=== PATIENT | female | born 2005 | race Caucasian/White ===

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

== ENCOUNTER → 2023-06-22 | Outpatient (CLI) | payer MEDICAID | LOC: RAD 14:57 | DX: R59.0 Localized enlarged lymph nodes (principal) | CPT/HCPCS: Q9967 ==

== ENCOUNTER 2023-07-17 01:35 | Emergency (ER) | payer MEDICAID ==
[~2023-07-17] VITALS: Ht 162.6 cm; Wt 102.3 kg
[2023-07-17 01:34] LABS: URINE WBC 0 /hpf (0-3)
[2023-07-17 01:40] LABS: BASO # 0.01 K/mm3 (0.02-0.10); EOS # 0.16 K/mm3 (0.04-0.40); EOS % 3.1 % (0.1-4.0); HEMATOCRIT 44.4 % (35.0-45.0); HEMOGLOBIN 14.8 g/dL (12.0-15.0); LYMPH# 2.36 K/mm3 (1.20-3.40); MEAN CELL VOLUME 85 fl (78-95); MEAN CORPUSCULAR HEMOGLOBIN 29 pg (26-32); MEAN CORPUSCULAR HGB CONC 33 g/dL (33-37); MEAN PLATELET VOLUME 10.2 fl (7.4-10.4); MONO # 0.63 K/mm3 (0.10-0.60); NEU # 2.02 K/mm3 (1.40-6.50); PLATELET COUNT 241 K/mm3 (130-400); RED CELL DISTRIBUTION WIDTH 12.6 % (11.5-14.5); WHITE BLOOD COUNT 5.2 K/mm3 (4.8-10.8)
[2023-07-17 01:44] LABS: ALBUMIN 4.2 g/dL (3.5-5.0)
[2023-07-17 01:46] LABS: CALCIUM 9.3 mg/dL (8.3-10.5)
[2023-07-17 01:47] LABS: URINE APPEARANCE CLEAR; URINE BILIRUBIN NEGATIVE (NEGATIVE); URINE BLOOD NEGATIVE (NEGATIVE); URINE COLOR YELLOW; URINE GLUCOSE NEGATIVE (NEGATIVE); URINE KETONE NEGATIVE (NEGATIVE); URINE LEUKOCYTE ESTERASE NEGATIVE (NEGATIVE); URINE MUCUS PRESENT (NOT PRESENT); URINE NITRATE NEGATIVE (NEGATIVE); URINE PROTEIN(semi-quant) NEGATIVE (NEGATIVE); URINE UROBILINOGEN NORMAL (NORMAL)
[2023-07-17 01:47] LABS: TOTAL PROTEIN 7.5 g/dL (6.4-8.3)
[2023-07-17 01:48] VITALS: BP 128/82
[2023-07-17 02:02] LABS: TOTAL BILIRUBIN 0.4 mg/dL (0.2-1.2)
[2023-07-17] MEDS ORDERED: CLINDAMYCIN 300MG PO (02:14)
== END 2023-07-17 02:30 | disposition home or self-care (01) ==
LOC: ED 01:35
PROVIDERS: Family Medicine
DX: L01.00 Impetigo, unspecified (principal); A38.9 Scarlet fever, uncomplicated

== ENCOUNTER → 2024-09-24 | Outpatient (CLI) | payer SELFPAY ==
[~2024-09-24] MED LIST changes: +CLINDAMYCIN 300MG PO
[2024-09-24 17:39] LABS: BASO # 0.01 K/mm3 (0.02-0.10); EOS # 0.09 K/mm3 (0.04-0.40); EOS % 1.2 % (1.0-5.0); HEMOGLOBIN 14.6 g/dL (12.5-16.0); LYMPH# 2.19 K/mm3 (1.50-4.00); MEAN CELL VOLUME 88 fl (78-100); MEAN CORPUSCULAR HEMOGLOBIN 30 pg (27-31); MEAN CORPUSCULAR HGB CONC 34 g/dL (33-37); MEAN PLATELET VOLUME 10.8 fl (7.4-10.4); MONO # 0.75 K/mm3 (0.20-0.80); NEU # 4.42 K/mm3 (1.40-6.50); PLATELET COUNT 231 K/mm3 (130-400); RED CELL DISTRIBUTION WIDTH 12.1 % (11.5-14.5); WHITE BLOOD COUNT 7.5 K/mm3 (4.8-10.8)
[2024-09-24 17:46] LABS: ALBUMIN 4.5 g/dL (3.5-5.0); SODIUM 142 mmol/L (136-145)
[2024-09-24 17:47] LABS: CALCIUM 9.8 mg/dL (8.3-10.5)
[2024-09-24 17:49] LABS: GLUCOSE 89 mg/dL (65-105); TOTAL PROTEIN 7.2 g/dL (6.4-8.3)
[2024-09-24 17:50] LABS: CARBON DIOXIDE 21 mmol/L (22-29)
[2024-09-24 17:51] LABS: TOTAL BILIRUBIN 0.4 mg/dL (0.2-1.2)
[2024-09-24 17:54] LABS: AST-SGOT 13 U/L (5-34)
[2024-09-24 17:55] LABS: ALT/SGPT 14 U/L (0-55)
[2024-09-24 17:57] LABS: LIPASE 18 U/L (8-78)
== END ==
LOC: LAB 17:15
PROVIDERS: Nurse Practitioner Family
DX: R10.9 Unspecified abdominal pain (principal)

== ENCOUNTER 2024-09-29 07:26 | Emergency (ER) | payer SELFPAY ==
[~2024-09-29] VITALS: Ht 162.6 cm; Wt 114.2 kg
[2024-09-29] MEDS ORDERED: PRILOSEC 20MG20 MG PO (07:45)
[2024-09-29 08:09] LABS: BASO # 0.02 K/mm3 (0.02-0.10); EOS # 0.04 K/mm3 (0.04-0.40); EOS % 0.7 % (1.0-5.0); HEMATOCRIT 42.9 % (37.0-47.0); HEMOGLOBIN 14.3 g/dL (12.5-16.0); LYMPH# 1.63 K/mm3 (1.50-4.00); MEAN CELL VOLUME 89 fl (78-100); MEAN CORPUSCULAR HEMOGLOBIN 30 pg (27-31); MEAN CORPUSCULAR HGB CONC 33 g/dL (33-37); MEAN PLATELET VOLUME 11.1 fl (7.4-10.4); MONO # 0.47 K/mm3 (0.20-0.80); PLATELET COUNT 230 K/mm3 (130-400); RED CELL DISTRIBUTION WIDTH 11.9 % (11.5-14.5); WHITE BLOOD COUNT 6.1 K/mm3 (4.8-10.8)
[2024-09-29 08:15] LABS: ALBUMIN 4.5 g/dL (3.5-5.0)
[2024-09-29 08:17] LABS: CALCIUM 9.5 mg/dL (8.3-10.5)
[2024-09-29 08:20] LABS: TOTAL BILIRUBIN 0.4 mg/dL (0.2-1.2)
[2024-09-29 08:23] LABS: PH-URINE 6.5 (5.0 - 8.0); URINE APPEARANCE CLEAR (CLEAR); URINE BILIRUBIN NEGATIVE (NEGATIVE); URINE BLOOD NEGATIVE (NEGATIVE); URINE COLOR YELLOW (YELLOW); URINE GLUCOSE NEGATIVE (NEGATIVE); URINE KETONE NEGATIVE (NEGATIVE); URINE LEUKOCYTE ESTERASE NEGATIVE (NEGATIVE); URINE MUCUS PRESENT (NOT PRESENT); URINE NITRATE NEGATIVE (NEGATIVE); URINE PROTEIN(semi-quant) NEGATIVE (NEGATIVE)
[2024-09-29] MEDS ORDERED: ZOFRAN ODT4 MG PO (08:54)
[2024-09-29 09:00] VITALS: BP 124/76
[2024-09-29] MEDS ORDERED: Home Ondansetron ODT 4 MG #2 ODT/PACK PO ONE (09:00)
== END 2024-09-29 09:09 | disposition home or self-care (01) ==
LOC: ED 07:26
PROVIDERS: Family Medicine
DX: R10.811 Right upper quadrant abdominal tenderness (principal); R10.13 Epigastric pain; R11.2 Nausea with vomiting, unspecified